=== PATIENT | female | born 1950 | race Caucasian/White ===

== ENCOUNTER 2019-12-11 05:44 | Emergency (ER) | payer BC, MEDICARE ==
[2019-12-11 06:59] LABS: #Basophils 0.1 thou/uL (0.0-0.2); #Eosinphils 0.1 thou/uL (0.0-0.7); #Lymphocytes 1.2 thou/uL (1.20-3.40); #Monocytes 0.7 thou/uL (0.11-0.59); #Neutrophils 6.8 thou/uL (1.40-6.50); %Basophils 0.8 % (0.0-1.0); %Lymphocytes 13.4 % (21.0-51.0); %Monocytes 7.6 % (0.0-10.0); %Neutrophils 77.2 % (42.0-75.0); Hemoglobin 12.1 g/dL (12.0-16.0); Mean Corpuscular HGB CONC 31.9 g/dL (32.0-36.0); Mean Corpuscular Hemoglobin 29.3 pg (27.0-31.0); Mean Corpuscular Volume 92.1 fL (78.0-98.0); Mean Platelet Volume 7.1 fL (7.4-10.4); Platelet Count 417 thou/uL (130-400); RBC Distribution Width 11.1 % (11.5-14.5); Red Blood Cell (RBC) Count 4.13 mill/uL (4.20-5.40); White Blood Cell (WBC) Count 8.8 thou/uL (4.8-10.8)
--- NOTE | 2019-12-11 07:10 | RAD ---
CHEST 2 VIEWS: Date: 12/11/2019 INDICATION: Dyspnea. COMPARISON: None. FINDINGS: There is mild cardiomegaly. There is pulmonary vascular congestion. There is increased air space opac ity in the left upper lobe. There are small bilateral pleural effusions, right greater than left. No acute osseous abnormality is evident. IMPRESSION: 1. Increased air space opacity in left upper lobe is suspicious for pneumonia. 2. There is a component suggesting mild CHF as there is cardiomegaly, pulmonary vascular congestion, and small bilateral pleural effusions. POS: [facility]
[2019-12-11 07:11] LABS: Bilirubin Small (Negative); Blood, Urine Negative (Negative); Clarity Clear (Clear); Glucose, Urine (Dipstick) Negative (Negative); Leukocyte Negative (Negative); Nitrite Negative (Negative); Protein, Urine (Dipstick) 30 mg/dL (Neg-Trace); Urobilinogen 0.2 mg/dL (Less than 2)
[2019-12-11 07:13] LABS: Bacteria/HPF None Seen HPF (None Seen); RBC/HPF 0-3 HPF (0-3); Squamous Epithelial 0-3 HPF (0-3); WBC/HPF 0-3 HPF (0-3)
[2019-12-11 07:17] LABS: ALT (SGPT) 17 U/L (8-55); AST (SGOT) 17 U/L (5-34); Albumin 4.2 g/dL (3.4-4.8); Alkaline Phosphatase 82 U/L (40-110); Anion Gap 17 mmol/L (10-20); BUN (Urea Nitrogen) 9 mg/dL (9.8-20.1); Calc. Creatinine Clearance 0 mL/min (70-130); Calcium 9.4 mg/dL (7.8-10.44); Carbon Dioxide 21 mmol/L (23-31); Chloride 97 mmol/L (98-107); Estimated GFR-MDRD 82; Globulin 3.1 g/dL (2.4-3.5); Glucose 114 mg/dL (80-115); Magnesium 1.8 mg/dL (1.6-2.6); Potassium 3.5 mmol/L (3.5-5.1); Protein, Total 7.3 g/dL (6.0-8.3); Sodium 131 mmol/L (136-145)
[2019-12-11] MEDS ORDERED: Amoxicillin/Potassium Clav 875 MG TAB ONE (07:48)
== END 2019-12-11 07:56 | disposition home or self-care (01) ==
LOC: MADERS 05:44
DX: J15.9 Unspecified bacterial pneumonia (principal); E05.90 Thyrotoxicosis, unspecified without thyrotoxic crisis or storm; E78.5 Hyperlipidemia, unspecified; E78.00 Pure hypercholesterolemia, unspecified; I10 Essential (primary) hypertension; Z79.899 Other long term (current) drug therapy
CPT/HCPCS: 36415; 71046; 80053; 81003; 81015; 83735; 83880; 84443; 84484; 85025; 93005

== ENCOUNTER 2019-12-14 10:52 | Emergency (ER) | payer MEDICARE ==
[~2019-12-14 10:52] MED LIST: Iopamidol 370 76% 125 ML VIAL FS ONE
[2019-12-14] MEDS ORDERED: Lactated Ringer's 1,000 ML ONE (11:14)
[2019-12-14] MEDS ORDERED: Ondansetron PF 4 MG/2 ML Vial ONE (11:14)
--- NOTE | 2019-12-14 11:26 | RAD ---
EXAM: Chest PA and lateral: HISTORY: Dyspnea. COMPARISON: 12/11/2019 FINDINGS: Heart: Persistent cardiomegaly. Aorta: Unremarkable Pulmonary vessels: Normal Costophrenic angles: Costophrenic angles are clear. Stable fluid tracking along the minor fissure. Lungs: Diffuse interstitial opacities with more focal alveolar opacification in the left upper lobe a nd left lower lobe. The degree of opacification is unchanged. Pneumothorax: No pneumothorax Osseous structures: No osseous abnormalities IMPRESSION: Increased fluid in the minor fissure. Otherwise, no significant interval change. Persistent multifoca l interstitial and alveolar opacities. Correlate for congestive heart failure.
[2019-12-14 11:47] LABS: #Basophils 0.1 thou/uL (0.0-0.2); #Lymphocytes 0.9 thou/uL (1.20-3.40); #Monocytes 0.7 thou/uL (0.11-0.59); %Basophils 0.6 % (0.0-1.0); %Eosinophils 0.2 % (0.0-10.0); %Lymphocytes 9.3 % (21.0-51.0); %Monocytes 7.3 % (0.0-10.0); %Neutrophils 82.6 % (42.0-75.0); Hemoglobin 12.6 g/dL (12.0-16.0); Mean Corpuscular HGB CONC 33.7 g/dL (32.0-36.0); Mean Corpuscular Hemoglobin 30.5 pg (27.0-31.0); Mean Corpuscular Volume 90.3 fL (78.0-98.0); Mean Platelet Volume 7.2 fL (7.4-10.4); Platelet Count 452 thou/uL (130-400); RBC Distribution Width 10.9 % (11.5-14.5); Red Blood Cell (RBC) Count 4.13 mill/uL (4.20-5.40); White Blood Cell (WBC) Count 9.7 thou/uL (4.8-10.8)
[2019-12-14 11:57] LABS: ALT (SGPT) 25 U/L (8-55); AST (SGOT) 22 U/L (5-34); Albumin 4.3 g/dL (3.4-4.8); Alkaline Phosphatase 84 U/L (40-110); Anion Gap 15 mmol/L (10-20); BUN (Urea Nitrogen) 7 mg/dL (9.8-20.1); Bilirubin, Total 1.3 mg/dL (0.2-1.2); Calc. Creatinine Clearance 0 mL/min (70-130); Calcium 9.3 mg/dL (7.8-10.44); Carbon Dioxide 24 mmol/L (23-31); Chloride 88 mmol/L (98-107); Estimated GFR-MDRD 87; Globulin 3.2 g/dL (2.4-3.5); Glucose 105 mg/dL (80-115); Potassium 3.4 mmol/L (3.5-5.1); Protein, Total 7.5 g/dL (6.0-8.3); Sodium 124 mmol/L (136-145)
--- NOTE | 2019-12-14 12:59 | CT ---
CT PULMONARY ANGIOGRAM WITH IV CONTRAST AND 3-D POSTPROCESSING: HISTORY:Dyspnea FINDINGS: There is good contrast opacification of the pulmonary arterial vasculature without filling defects to suggest pulmonary embolism. The thoracic aorta is well opacified without aneurysm or dissection. Bilateral pleural effusions, right larger than left and pericardial effusion are seen. No pneumothoraces are noted. There is consolidation/atelectatic change in the left upper lobe. There are degenerative changes in the spine. Upper abdominal tomograms demonstrate fatty infiltration of the liver with a 2.3 cm left hepatic cyst . IMPRESSION: 1. No CT evidence of pulmonary embolism. 2. Pericardial and pleural effusions. 3. Left upper lobe consolidation/atelectatic change. Further evaluation with bronchoscopy is recommen ded.
== END 2019-12-14 14:49 | disposition short-term general hospital (02) ==
LOC: MADERS 10:52
DX: J90 Pleural effusion, not elsewhere classified (principal); E87.1 Hypo-osmolality and hyponatremia; E03.9 Hypothyroidism, unspecified; E78.5 Hyperlipidemia, unspecified; E78.00 Pure hypercholesterolemia, unspecified; I10 Essential (primary) hypertension; Z79.899 Other long term (current) drug therapy
CPT/HCPCS: 36415; 71046; 71275; 80053; 83605; 83880; 84484; 85025; 85379; 87040; 93005; 96361; 96374; J2405; J7120; Q9967

== ENCOUNTER 2019-12-21 19:46 | Emergency (ER) | payer MEDICARE ==
[~2019-12-21 19:46] MED LIST changes: -Iopamidol 370 76% 125 ML VIAL FS ONE; +Sodium Chloride 0.9% 500 ML BAG ONE
[2019-12-21 20:36] LABS: #Basophils 0.1 thou/uL (0.0-0.2); #Lymphocytes 1.7 thou/uL (1.20-3.40); #Monocytes 0.9 thou/uL (0.11-0.59); #Neutrophils 8.5 thou/uL (1.40-6.50); %Basophils 0.7 % (0.0-1.0); %Eosinophils 0.4 % (0.0-10.0); %Monocytes 7.8 % (0.0-10.0); %Neutrophils 76.1 % (42.0-75.0); Hemoglobin 13.3 g/dL (12.0-16.0); Mean Corpuscular HGB CONC 32.5 g/dL (32.0-36.0); Mean Corpuscular Hemoglobin 29.5 pg (27.0-31.0); Mean Corpuscular Volume 90.6 fL (78.0-98.0); Mean Platelet Volume 6.7 fL (7.4-10.4); Platelet Count 541 thou/uL (130-400); Red Blood Cell (RBC) Count 4.52 mill/uL (4.20-5.40); White Blood Cell (WBC) Count 11.1 thou/uL (4.8-10.8)
[2019-12-21 20:57] LABS: ALT (SGPT) 18 U/L (8-55); AST (SGOT) 20 U/L (5-34); Alkaline Phosphatase 76 U/L (40-110); Anion Gap 17 mmol/L (10-20); BUN (Urea Nitrogen) 7 mg/dL (9.8-20.1); Calc. Creatinine Clearance 0 mL/min (70-130); Calcium 9.3 mg/dL (7.8-10.44); Carbon Dioxide 22 mmol/L (23-31); Chloride 93 mmol/L (98-107); Estimated GFR-MDRD 87; Glucose 102 mg/dL (80-115); Potassium 3.5 mmol/L (3.5-5.1); Sodium 128 mmol/L (136-145)
--- NOTE | 2019-12-21 20:59 | CT ---
CT BRAIN NONCONTRAST: DATE: 12/21/2019 HISTORY: 69-year-old female with altered mental status, dizziness, and headache FINDINGS: There is an unusual finding of a large number of punctate focal parenchymal hyperdensities throughout the superficial cerebral cortex bilaterally, especially superiorly. Etiology is uncertain. One possibility is innumerable tiny petechial hemorrhages, although the appearance is unusual for that. A nother possibility is innumerable calcifications, although there densities are probably due to low to represent calcifications. There is no evidence of acute intra-axial or extra-axial large hematoma. There is no midline shift or any other mass effect. There is no extra-axial fluid collection. There is no evidence of obstructive hydrocephalus. Calvarium is intact. IMPRESSION: 1. No intracranial mass effect. 2. An unusual finding of a very large number of tiny cerebral cortical hyperdensities throughout the cerebrum bilaterally, of unknown etiology. Recommend MRI of the brain with and without contrast sometime tomorrow.
[2019-12-21 21:03] LABS: Bilirubin Negative (Negative); Blood, Urine Negative (Negative); Glucose, Urine (Dipstick) Negative (Negative); Leukocyte Trace (Negative); Nitrite Negative (Negative); Protein, Urine (Dipstick) 30 mg/dL (Neg-Trace)
[2019-12-21 21:04] LABS: Clarity Slightly Cloudy (Clear)
[2019-12-21 21:07] LABS: Bacteria/HPF Rare-Few HPF (None Seen); Mucous/LPF 1+ LPF (<2+); RBC/HPF None Seen HPF (0-3)
--- NOTE | 2019-12-21 21:27 | RAD ---
RADIOGRAPH CHEST 2 VIEW: DATE: 12/21/2019 TIME: 8:50 PM HISTORY: 69-year-old female with dyspnea COMPARISON: 12/17/2019 FINDINGS: There has been interval decrease in volume of a small bilateral pleural effusions. There are currentl y very small. In the anterior segment of left upper lobe, the platelike pulmonary opacity has decreased in size. Diffusely prominent interstitial markings bilaterally could represent minimal pulm onary interstitial edema. No cardiomegaly or pneumothorax. IMPRESSION: 1. Interval decrease in volume of the now very small bilateral pleural effusions (left greater than r ight). 2. Prominent interstitial markings may or may not represent minimal interstitial edema. 3. Interval improvement in left upper lobe atelectasis versus pneumonia
== END 2019-12-21 21:51 | disposition short-term general hospital (02) ==
LOC: MADERS 19:46
DX: G93.9 Disorder of brain, unspecified (principal); R41.82 Altered mental status, unspecified; E87.1 Hypo-osmolality and hyponatremia; E78.00 Pure hypercholesterolemia, unspecified; E78.5 Hyperlipidemia, unspecified; E03.9 Hypothyroidism, unspecified; I10 Essential (primary) hypertension; Z79.899 Other long term (current) drug therapy
CPT/HCPCS: 70450; 71046; 80053; 81003; 81015; 83880; 84484; 85025; 93005; 94760; 96360; J7050

== ENCOUNTER 2020-01-25 09:49 | Emergency (ER) | payer MEDICARE ==
[2020-01-25 11:12] LABS: #Basophils 0.1 thou/uL (0.0-0.2); #Lymphocytes 0.8 thou/uL (1.20-3.40); #Neutrophils 9.1 thou/uL (1.40-6.50); %Basophils 0.6 % (0.0-1.0); %Eosinophils 0.2 % (0.0-10.0); %Monocytes 9.2 % (0.0-10.0); Hemoglobin 13.8 g/dL (12.0-16.0); Mean Corpuscular HGB CONC 34.6 g/dL (32.0-36.0); Mean Corpuscular Hemoglobin 29.5 pg (27.0-31.0); Mean Corpuscular Volume 85.2 fL (78.0-98.0); Mean Platelet Volume 6.7 fL (7.4-10.4); Platelet Count 443 thou/uL (130-400); RBC Distribution Width 11.1 % (11.5-14.5)
--- NOTE | 2020-01-25 11:17 | RAD ---
PA AND LATERAL CHEST: Date: 01/25/2020 HISTORY: Syncope, mental status change. COMPARISON: 12/21/2019 exam. Review is also made of a 12/31/2019 PET scan. FINDINGS: There has been a definite worsening in the appearance of the chest. Heart size is difficult to assess due to opacification of the left base which appears to represent effusion and infiltrate or atelecta sis. Interstitial changes are more diffusely increased as compared to the prior examination. There is more of a mass-like area in the left upper lobe on this exam as compared to the prior study. IMPRESSION: 1. Development of opacification of the left lung base suggesting effusion with atelectasis or infilt rate. 2. There is some diffuse increase in the interstitial lung markings as compared to the prior study. This could indicate pulmonary edema-type change. Lymphangitic spread of tumor would be another possib ility. An atypical infection would be considered less likely. 3. The atelectatic changes in the left upper lobe seen on the prior examination have more of a mass- like appearance in the left suprahilar region on today's study. POS: [facility]
[2020-01-25 11:26] LABS: ALT (SGPT) 16 U/L (8-55); AST (SGOT) 26 U/L (5-34); Albumin 3.8 g/dL (3.4-4.8); Alkaline Phosphatase 76 U/L (40-110); Anion Gap 17 mmol/L (10-20); BUN (Urea Nitrogen) 7 mg/dL (9.8-20.1); Bilirubin, Total 1.4 mg/dL (0.2-1.2); Calc. Creatinine Clearance 0 mL/min (70-130); Calcium 8.4 mg/dL (7.8-10.44); Carbon Dioxide 22 mmol/L (23-31); Chloride 79 mmol/L (98-107); Estimated GFR-MDRD Greater than 90; Globulin 2.5 g/dL (2.4-3.5); Glucose 98 mg/dL (80-115); Potassium 3.1 mmol/L (3.5-5.1); Protein, Total 6.3 g/dL (6.0-8.3)
[2020-01-25 11:31] LABS: Bilirubin Negative (Negative); Blood, Urine Trace (Negative); Glucose, Urine (Dipstick) Negative (Negative); Leukocyte Small (Negative); Nitrite Negative (Negative); Protein, Urine (Dipstick) Negative (Neg-Trace); Urobilinogen 0.2 mg/dL (Less than 2)
[2020-01-25 11:34] LABS: Sodium 115 mmol/L (136-145)
[2020-01-25 11:35] LABS: Clarity Hazy (Clear)
[2020-01-25 11:42] LABS: Bacteria/HPF 1+ HPF (None Seen); Renal Epithelial 0-3 HPF (None Seen)
[2020-01-25] MEDS ORDERED: Sodium Chloride 0.9% 1,000 ML ONE (11:45)
[2020-01-25] MEDS ORDERED: Sodium Chloride 0.9% 100 ML ONE (12:51)
[2020-01-25] MEDS ORDERED: cefTRIAXone\\ROCEPHIN 2 GM VIAL ONE (12:52)
== END 2020-01-25 14:13 | disposition short-term general hospital (02) ==
LOC: MADERS 09:49
DX: E87.1 Hypo-osmolality and hyponatremia (principal); R91.8 Other nonspecific abnormal finding of lung field; R06.03 Acute respiratory distress; E03.9 Hypothyroidism, unspecified; E78.5 Hyperlipidemia, unspecified; E78.00 Pure hypercholesterolemia, unspecified; I10 Essential (primary) hypertension; Z79.899 Other long term (current) drug therapy
CPT/HCPCS: 36415; 71046; 80053; 81003; 81015; 83605; 84443; 85025; 87040; 93005; 96361; 96365; J0696; J3490; J7050